=== PATIENT | male | born 1980 | race Caucasian/White ===

== ENCOUNTER 2017-01-27 18:07 | Emergency (ER) | payer OTHER ==
[2017-01-27 18:13] VITALS: BP 112/64
--- NOTE | 2017-01-27 19:02 | RAD ---
INDICATION: LEFT wrist pain following crush injury. COMPARISON: None. TECHNIQUE: AP, lateral, and oblique views LEFT wrist. REPORT: Normal articular alignment. No cortical disruption or suspicious trabecular irregularity to suggest fracture. Mild nonfocal soft tissue swelling at the distal forearm and wrist. IMPRESSION: Nonspecific soft tissue swelling. No fracture evident. If there is high index of suspicion for an occult scaphoid fracture repeat exam in 7 - 10 days would be suggested.
[2017-01-27] MEDS ORDERED: traMADol TAB* 50 MG PO ONE (19:04)
[2017-01-27] MEDS ORDERED: Naproxen TAB* 250 MG PO ONE (19:04)
--- NOTE | 2017-01-27 21:19 | ED ---
I, Oh,Katlyn, scribed for Elier Harris MD on 01/27/17 at 1830 . Complex/Multi-Sys Presentation - HPI Summary HPI Summary: This 36 y/o male presents to ED for dental pain as well as left wrist pain since 2 days ago. Pt reports intermittent swelling at right upper jaw that is currently resolved. Primary care involves Benji Abrahan, but pt has not been following up with the office due to insurance issues. Left wrist pain is secondary to crush injury. Pt is current smoker. Pt denies any PMHx. 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 Negative: Fever - Allergies/Home Medications Allergies/Adverse Reactions: Allergies Allergy/AdvReac Type Severity Reaction Status Date / Time No Known Allergies Allergy Verified 03/25/15 09:34 PMH/Surg Hx/FS Hx/Imm Hx Previously Healthy: Yes - Denies any PMHx Infectious Disease History: No Infectious Disease History: Denies: Traveled Outside the [place] in Last 30 Days - Family History Known Family History: Positive: Diabetes, Other - cancer - Social History Alcohol Use: Occasionally Hx Substance Use: No Substance Use Type: Reports: None Hx Tobacco Use: Yes Smoking Status (MU): Current Every Day Smoker Review of Systems Negative: Fever Positive: Dental Pain Positive: Other - left wrist pain Negative: Anxious, Depressed All Other Systems Reviewed And Are Negative: Yes Physical Exam - Summary Physical Exam Summary: General: Comfortable, pleasant, alert HEENT: Moist mucosa. Pain at right upper and lower jaw without noted swelling or abscess. No trismus. Neck: soft, supple, no adenopathy, no edema. No lymphadenopathy. Heart: S1, S2, RRR, no murmurs, rubs, or gallops Lungs: Clear to auscultation, breathing comfortable, no wheezes or rales Abdominal: Soft, flat, nontender Extremities: No edema, no calf tenderness. Distinct tenderness at lateral left wrist. Diffuse swelling at medial side of left wrist. Neuro: Alert and oriented x 3. FROM at wrist and finger including finger AV adduction and gripping. Psych: Logical, coherent Triage Information Reviewed: Yes Vital Signs On Initial Exam: Initial Vitals Temp Pulse Resp BP Pulse Ox 99.1 F 81 20 112/64 98 01/27/17 18:10 01/27/17 18:10 01/27/17 18:10 01/27/17 18:10 01/27/17 18:10 Vital Signs Reviewed: Yes Diagnostics - Vital Signs Vital Signs Temp Pulse Resp BP Pulse Ox 01/27/17 18:10 99.1 F 81 20 112/64 98 - Laboratory Lab Statement: Any lab studies that have been ordered have been reviewed, and results considered in the medical decision making process. - Radiology Left Wrist Xray Interpretation: No Acute Changes Radiology Interpretation Completed By: ED Physician Complex Multi-Symp Course/Dx Assessment/Plan: Pt presents to ED with diffuse, right sided dental pain. Intermittent for quite a long time. He sees [facility]. He will return of any sign of infection or increased swelling. He also presents with acute left wrist pain since 2 days ago. The wrist is neurovascularly intact. X-ray is negative for any fracture. Clinically consistent with contusion. Pt had his wrist caught between arm wire and wall. - Diagnoses Provider Diagnoses: Contusion of left wrist, Dental decay Discharge - Discharge Plan Condition: Good Disposition: HOME Prescriptions: traMADol TAB* [Ultram*] 50 mg PO Q12H PRN #20 tab MDD 150 PRN Reason: Pain Patient Education Materials: Dental Caries (ED), Contusion in Adults (ED) Referrals: Deyvi Stallworth MD [Primary Care Provider] - The documentation as recorded by the Silver saha Soohyun accurately reflects the service I personally performed and the decisions made by , Elier Harris MD.
== END 2017-01-27 19:24 | disposition home or self-care (01) ==
LOC: ED 18:07
DX: K02.9 Dental caries, unspecified (principal); S60.212A Contusion of left wrist, initial encounter; X58.XXXA Exposure to other specified factors, initial encounter; Y92.9 Unspecified place or not applicable; F17.200 Nicotine dependence, unspecified, uncomplicated
CPT/HCPCS: 99282; A9270-GY

== ENCOUNTER 2017-01-30 18:20 | Emergency (ER) | payer OTHER ==
--- NOTE | 2017-01-30 19:47 | ED ---
Throat Pain/Nasal Congestion - HPI Summary HPI Summary: 36M presents with dental pain for 5 days. Was seen here and given tramadol and was not placed on antibiotic. States that has been unable to set up appointment with dentist. He states the pain has gotten worst and the tramadol has not worked. He says the pain radiates to under his eye but he denies any eye swelling or pain with eye movement. He denies any fever. - History of Current Complaint Chief Complaint: EDDentalPain Time Seen by Provider: 01/30/17 19:14 - Allergies/Home Medications Allergies/Adverse Reactions: Allergies Allergy/AdvReac Type Severity Reaction Status Date / Time No Known Allergies Allergy Verified 03/25/15 09:34 PMH/Surg Hx/FS Hx/Imm Hx Endocrine/Hematology History: Denies: Hx Diabetes EENT History: Denies: Hx Hearing Aid Infectious Disease History: No Infectious Disease History: Denies: Traveled Outside the [place] in Last 30 Days - Family History Known Family History: Positive: Diabetes, Other - cancer - Social History Alcohol Use: Occasionally Hx Substance Use: No Substance Use Type: Reports: None Hx Tobacco Use: Yes Smoking Status (MU): Current Every Day Smoker Review of Systems Negative: Fever Positive: Dental Pain Negative: Chest Pain Negative: Shortness Of Breath All Other Systems Reviewed And Are Negative: Yes Physical Exam Triage Information Reviewed: Yes Vital Signs On Initial Exam: Initial Vitals Temp Pulse Resp BP Pulse Ox 98.5 F 77 16 111/66 98 01/30/17 18:23 01/30/17 18:23 01/30/17 18:23 01/30/17 18:23 01/30/17 18:23 Vital Signs Reviewed: Yes Appearance: Positive: Well-Appearing Skin: Positive: Warm, Dry Head/Face: Positive: Normal Head/Face Inspection Eyes: Positive: Normal, Conjunctiva Clear ENT: Positive: Normal ENT inspection, Pharynx normal, TMs normal Dental: Positive: Percussion Tenderness @ - 5 with part of tooth missing, Gross Decay/Caries @ - with teeth missing. Negative: Bleeding Cardiovascular: Positive: Normal, RRR Diagnostics - Vital Signs Vital Signs Temp Pulse Resp BP Pulse Ox 01/30/17 18:23 98.5 F 77 16 111/66 98 - Laboratory Lab Statement: Any lab studies that have been ordered have been reviewed, and results considered in the medical decision making process. EENT Course/Dx - Course Course Of Treatment: 36M presents with dental pain for 5 days, no sign of infection, tooth 5 is painful, no swelling around eye or pain with eye movement , patient requesting different pain medication, explained that needs to follow up with dentist for definitive treatment and gave antibiotic and pain medication , patient understands and agrees with plan - Differential Diagnoses Differential Diagnoses: Dental Abscess, Dental Caries, Fractured Tooth - Diagnoses Provider Diagnoses: Pain, dental Discharge - Discharge Plan Condition: Good Disposition: HOME Prescriptions: Penicillin VK TAB* [Penicillin VK 250 mg Tab*] 500 mg PO QID #27 tab oxyCODONE/Acetamin 5/325 MG* [Percocet 5/325 TAB*] 1 tab PO Q6H PRN #12 tab MDD 4 PRN Reason: Pain Patient Education Materials: Toothache (ED) Referrals: Basim CHU,Deyvi John [Primary Care Provider] - Additional Instructions: Take antibiotics: 4 times a day for 7 days, first dose given in ED Use ibuprofen every 6 hours and narcotic for break through pain at night Avoid hard, crunchy food until seen by dentist Follow up with dentist as soon as possible Return to ED if develop fever, shortness of breath, pain with eye movement or swelling around eye Establish care with primary care physician
[2017-01-30] MEDS ORDERED: Penicillin VK TAB* 250 MG PO ONE (19:50)
[2017-01-30] MEDS ORDERED: oxyCODONE/Acetamin 5/325 MG* TAB PO ONE (19:52)
[2017-01-30 21:01] VITALS: BP 122/64
== END 2017-01-30 20:20 | disposition home or self-care (01) ==
LOC: ED 18:20
DX: K08.89 Other specified disorders of teeth and supporting structures (principal); Z87.891 Personal history of nicotine dependence
CPT/HCPCS: 99282; A9270-GY

== ENCOUNTER 2018-08-05 11:19 | Emergency (ER) | payer SELFPAY ==
[2018-08-05 11:33] VITALS: BP 110/68
[2018-08-05] MEDS ORDERED: Ibuprofen TAB* 600 MG PO ONE (11:59)
--- NOTE | 2018-08-05 12:03 | UC ---
Back Pain HPI - HPI Summary HPI Summary: This patient is a 38 year old M presenting to [facility] [place] with a CC of waxing and waning left lower back pain and spasm since 08/03/18. He states he fell off of his porch while trying to hang a clothes line, and he lost his balance, landing on his right side and right foot. He endorses PMHx back problems. Pt denies hematuria, numbness, paresthesia, weakness in legs, incontinence. Pt also reports pain on right foot. States injured when fell. Pt states has a history of intermittent No strike No LOC No neck or back pain. No open wounds. Pt took Motrin yesterday. Pt took APAP this morning. states has a history of back problems. Does not currently have a PCP. No h/o back surgery. Pt states pain is in same spot as previous. Pt's medications reviewed this visit - History of Current Complaint Chief Complaint: UCBackPain Stated Complaint: BACK PAIN Time Seen by Provider: 08/05/18 11:39 Hx Obtained From: Patient Onset/Duration: Sudden Onset, Lasting Days, Still Present Timing: Constant Severity Initially: Moderate Severity Currently: Moderate Pain Intensity: 8 Pain Scale Used: 0-10 Numeric Back Pain: Is Discrete @ - left lower back, right foot Character: Sharp Aggravating Factor(s): Nothing Alleviating Factor(s): OTC Meds Associated Signs And Symptoms: Positive: Swelling - foot. Negative: Bruising, Fever, Weakness, Numbness, Tingling, Bladder Incontinence, Bowel Incontinence - Allergies/Home Medications Allergies/Adverse Reactions: Allergies Allergy/AdvReac Type Severity Reaction Status Date / Time No Known Allergies Allergy Verified 08/05/18 11:32 Home Medications: Home Medications NK [No Home Medications Reported] 08/05/18 [History Confirmed 08/05/18] PMH/Surg Hx/FS Hx/Imm Hx - Additional Past Medical History Additional PMH: "back problems" Previously Healthy: No - Surgical History Surgical History: Yes Surgery Procedure, Year, and Place: left hand - 2011 - Family History Known Family History: Positive: Cardiac Disease - father, Diabetes - father, Other - cancer - Social History Occupation: Employed Full-time Lives: Alone Alcohol Use: Occasionally Substance Use Type: None Smoking Status (MU): Current Every Day Smoker Household Exposure Type: Cigarettes Review of Systems Constitutional: Negative Musculoskeletal: Edema - foot, Myalgia - left lower back Neurological: Negative Is Patient Immunocompromised?: No All Other Systems Reviewed And Are Negative: Yes Physical Exam - Summary Physical Exam Summary: Vital Signs Reviewed: Yes A+Ox3, no distress Eyes: Conjunctiva Clear, ZACH. EOM intact and full ENT: Hearing grossly normal TM x 2 clear, mmoist, uvula midline, no exudate, no erythema Neck: Positive: Supple Respiratory: Positive: No respiratory distress, No accessory muscle use + CTA throughout no w/r Cardiovascular: RRR nl s1, s2 no m/r CBT <2 sec abd soft + BS nt/nd no guarding, no distension Musculoskeletal Exam: No pain spinous process pain. + left midlumbar paraspinal pain. No crepitus + SLE b/l + flex/ext knee with mild discomfort left back + TTP base 4/5th MT - no crepitus no malleolus pain no mt pain Neurological: Positive: Alert, + sensation throughout + gross sensation + great toe ext 2+ patellar b/l no clonus Psychological: Positive: Normal Response To Family Skin: Positive: no rash, no ecchymosis no edema. no abraison Vital Signs: Initial Vital Signs Temp 98.4 F 08/05/18 11:26 Pulse 92 08/05/18 11:26 Resp 18 08/05/18 11:26 BP 110/68 08/05/18 11:26 Pulse Ox 91 08/05/18 11:26 Diagnostics - Radiology RLE XR Radiology Interpretation Completed By: Radiologist - NO ACUTE OSSEOUS INJURY. IF SYMPTOMS PERSIST, RECOMMEND REPEAT IMAGING. Dr. Monet has reviewed this report. Re-Evaluation - Re-Evaluation First Eval Re-Evaluation Time: 12:25 Change: Unchanged Comment: Reviewed XR with pt, offered urgent Rx, declined. Back Pain Course/Dx - Course Course Of Treatment: Patient presents reporting pain in his left lumbar area. Patient states he fell off his deck approximately 3-4 days ago. Discharge - Sign-Out/Discharge Documenting (check all that apply): Patient Departure - Discharge All imaging exams completed and their final reports reviewed: Yes - Discharge Plan Patient Education Materials: Low Back Strain (ED), Foot Contusion (ED), Muscle Spasm (ED) Referrals: Basim CHU,Deyvi John [Primary Care Provider] - Additional Instructions: - - Attestation Statements Document Initiated by Tomere: Yes Documenting Scribe: Marcelino Long Provider For Whom Scribe is Documenting (Include Credential): Dr. Jessica Monet MD Scribe Attestation: IMarcelino, scribed for Dr. Jessica Monet MD on 08/05/18 at 1224.
--- NOTE | 2018-08-05 12:23 | RAD ---
HISTORY: pain base 5th - fell off porch COMPARISONS: None VIEWS: 3 , Frontal, lateral, and oblique views of the right foot FINDINGS: BONE DENSITY: Normal. BONES: There is no displaced fracture. JOINTS: There is no arthropathy. ALIGNMENT: There is no dislocation. SOFT TISSUES: Unremarkable. OTHER FINDINGS: None. IMPRESSION: NO ACUTE OSSEOUS INJURY. IF SYMPTOMS PERSIST, RECOMMEND REPEAT IMAGING.
== END 2018-08-05 12:51 | disposition home or self-care (01) ==
LOC: UCEAST 11:19
DX: M54.5 Low back pain (principal); M79.671 Pain in right foot; R60.0 Localized edema; F17.210 Nicotine dependence, cigarettes, uncomplicated
CPT/HCPCS: 99212; A9270-GY; G0463